=== PATIENT | female | born 1950 | race African-American/Black ===

== ENCOUNTER 2022-11-29 10:09 | Outpatient (RCR) | payer OTHER ==
[2022-11-29] MEDS ORDERED: MUPIROCIN 2% OINT 22 GM TUBE ONE (11:50)
== END 2022-12-14 ==
LOC: WCC 10:09
PROVIDERS: ATTEND Plastic Surgery
DX: S31.100A Unspecified open wound of abdominal wall, right upper quadrant without penetration into peritoneal cavity, initial encounter (principal)